=== PATIENT | female | born 1940 | race Caucasian/White ===

== ENCOUNTER 2017-03-12 17:34 | Emergency (ER) | payer OTHER ==
[~2017-03-12 17:34] MED LIST: ALBUTEROL17 GM IH; AMLODIPINE BESYL5 MG PO; CARVEDILOL25 MG PO; COUMADIN5 MG PO; DILTIAZEM 24HR240 M1 PO; DILTIAZEM 24HR240 M2 PO; FLAGYL250 M1 PO; HUMULIN 70100 UNIT/1 SUBQ; IPRAT-ALBUT 0.5-3 ML IH; LISINOPRIL-HCTZ1 T14 PO; LISINOPRIL20 MG PO; METFORMIN HCL500 M1 PO; NOVOLOG100 U/ML SUBQ; PEPTO-BISMOL262 MG PO; POLYTRIM EYE DR10 ML OP; PREDNISONE PO; PRILOSEC20 M1 PO; SIMVASTATIN20 MG PO; SOTALOL AF80 M1 PO; SOTALOL120 MG PO; SYMBICORT INH; TRIAMTERENE-HCT1 TA6 PO; TRIAMTERENE-HCT1 TA8 PO; ZOCOR20 MG PO
== END 2017-03-12 18:00 | disposition home or self-care (01) ==
LOC: CFTX 17:34 → CED 17:34 → CFTX 18:00
DX: T16.2XXA Foreign body in left ear, initial encounter (principal); E11.9 Type 2 diabetes mellitus without complications; I10 Essential (primary) hypertension; J44.9 Chronic obstructive pulmonary disease, unspecified; E78.5 Hyperlipidemia, unspecified; Z87.891 Personal history of nicotine dependence
CPT/HCPCS: 69200; 99282